=== PATIENT | male | born 1985 | race Caucasian/White ===

== ENCOUNTER 2017-06-04 20:44 | Emergency (ER) | payer SELFPAY ==
[~2017-06-04] VITALS: Ht 172.7 cm; Wt 95.5 kg
[2017-06-04 20:47] VITALS: Ht 172.7 cm; Wt 95.5 kg
[2017-06-04] MEDS ORDERED: TETRACAINE 0.5% 4 ML OPH BOTH EYES ONE (21:30)
[2017-06-04] MEDS ORDERED: DIPHTH/TET/ACEL PERTUSS (ADULT) 0.5 ML VIAL IM* ONE (21:30)
[2017-06-04] MEDS ORDERED: FLUORESCEIN STRIP BOTH EYES ONE (21:30)
[2017-06-04] MEDS ORDERED: IBUP-1542 PO (22:59)
[2017-06-04] MEDS ORDERED: OFLO5DRO46 BOTH EYES (22:59)
--- NOTE | 2017-06-04 23:01 | ERD ---
ER Documentation Chief Complaint Date/Time DATE: 06/04/17 TIME: 23:01 Chief Complaint pt works with water heater that exploded and debris went into eyes HPI Patient is a 32-year-old male who presents to the emergency department for concerns of injury. Patient states approximately 1 hour ago he was putting a water heater back together with friend when the water heater "exploded" and dust went into the patient's face and eyes. Patient denies any hot water or flames in his face. Patient states he initially had some blurry vision however it has resolved completely. Patient has normal site at this time. Patient denies any burning pain. Patient states his eyes to feel itchy. Patient does not wear contact lens.Patient denies any fevers, chills, nausea, headache, vomiting, chest pain, shortness of breath or LOC. ROS All systems reviewed and are negative except as per history of present illness. Medications Home Meds Active Scripts Ibuprofen* (Motrin*) 600 Mg Tab, 600 MG PO Q6, #20 TAB Prov:KIMBERLY RIGGS PA-C 06/04/17 Ofloxacin* (Ocuflox*) 0.3%-5 Ml Ophth Drops, 1 DROP BOTH EYES QID for 7 Days, BOTTLE Prov:KIMBERLY RIGGS PA-C 06/04/17 Allergies Allergies: Coded Allergies: No Known Allergy (Unverified , 06/04/17) PMhx/Soc Medical and Surgical Hx: pt denies Medical Hx, pt denies Surgical Hx Hx Alcohol Use: No Hx Substance Use: No Hx Tobacco Use: No Smoking Status: Never smoker FmHx Family History: No diabetes Physical Exam Vitals Vital Signs Date Time Temp Pulse Resp B/P Pulse Ox O2 Delivery O2 Flow Rate FiO2 06/04/17 20:47 98.3 68 18 148/85 99 Physical Exam GENERAL: Well-developed, well-nourished male. Appears in no acute distress. Speaking in full sentences. HEAD: Normocephalic, atraumatic. No abrasions or lacerations noted to the patient's forehead or face. No mendoza noted to face. EYE: Visual acuity w/ Snellen eye chart: OS 20/20, OD 20/20, OU 20/20 Normal eye alignment. No orbital swelling or erythema. No mendoza noted bilaterally. No proptosis. Pupils equal, round, and reactive to light. EOMs intact. Slight conjunctival erythema noted bilaterally. No eye discharge. Anterior chamber clear. No hyphema or hypopion. Espinoza lamp exam: No foreign bodies, corneal abrasions or ulcerations of bilateral eyes visualized with fluorescein dye. ENT: Moist mucous membranes. No uvula deviation. No kissing tonsils. NECK: Supple. No meningismus. Normal range of motion of the neck. LUNGS: Clear to auscultation bilaterally. No rhonchi, wheezing, rales or coarse breath sounds. HEART: Regular rate and rhythm. No murmurs, rubs or gallops. EXTREMITIES: Equal pulses bilaterally. No peripheral clubbing, cyanosis or edema. No unilateral leg swelling. NEUROLOGIC: Alert and oriented. Moving all four extremities without any difficulty. Normal speech. Steady gait. SKIN: Normal color. Warm and dry. No rashes or lesions. Results 24 hrs Current Medications Medications (Trade) Dose Ordered Sig/Latia Route PRN Reason Start Time Stop Time Status Last Admin Dose Admin Tetracaine HCl (Tetracaine 0.5% Steri-Unit Urmila) 1 drop ONCE ONCE BOTH EYES 06/04/17 21:30 06/04/17 21:31 DC Fluorescein Sodium (Piyrf-L-Hxdzq) 1 strip ONCE ONCE BOTH EYES 06/04/17 21:30 06/04/17 21:31 DC Diphtheria/ Tetanus/Acell Pertussis (Adacel) 0.5 ml ONCE ONCE IM* 06/04/17 21:30 06/04/17 21:31 DC 06/04/17 21:23 Procedures/MDM MEDICAL DECISION MAKING: This is a 32-year-old male who presents to the ED for concerns of eye irritation after a water heater exploded and caused dust particles to get into his bilateral eyes proximally 1 hour ago. Vital signs were reviewed. Patient was afebrile. Visual acuity was assessed. Patient was noted to have 20/20 vision in bilateral eyes. Patient's eyes were rinsed out with a Jhon lens bilaterally. Wood's lamp was used to assess for any abrasions or ulcerations. No corneal abrasions or ulcerations were noted using fluorescein staining. Given these findings, the patient's presentation is most consistent with corneal irritation. I have a much lower clinical concern for bacterial conjunctivitis, viral conjunctivitis, allergic conjunctivitis, corneal abrasion , corneal ulcer, retained eye foreign body, glaucoma, periorbital cellulitis, orbital cellulitis, hordeolum, dacrocystitis, burn injury. PRESCRIPTIONS: Ibuprofen, Ocuflox DISCHARGE: At this time, patient is stable for discharge and outpatient management. Patient was advised to follow-up with an eyeglass inspector in the next 1 to 2 days. Referral information provided. Supportive measures were discussed with patient including warm/cool compresses. Patient advised not to wear contact lenses or eye makeup. I have instructed the patient to follow-up with his/her primary care physician in 1-2 days. I have instructed the patient to promptly return to the ER for any new or worsening symptoms including increased pain, fever, swelling, redness, warmth, nausea, vomiting, . The patient and/or family expressed understanding of and agreement with this plan. All questions were answered. Home care instructions were provided. Departure Diagnosis: Primary Impression: Corneal irritation of both eyes Condition: Stable Referrals: [facility] YOU HAVE RECEIVED A MEDICAL SCREENING EXAM AND THE RESULTS INDICATE THAT YOU DO NOT HAVE A CONDITION THAT REQUIRES URGENT TREATMENT IN THE EMERGENCY DEPARTMENT. FURTHER EVALUATION AND TREATMENT OF YOUR CONDITION CAN WAIT UNTIL YOU ARE SEEN IN YOUR DOCTORS OFFICE WITHIN THE NEXT 1-2 DAYS. IT IS YOUR RESPONSIBILITY TO MAKE AN APPOINTMENT FOR FOLOW-UP CARE. IF YOU HAVE A PRIMARY DOCTOR --you should call your primary doctor and schedule an appointment IF YOU DO NOT HAVE A PRIMARY DOCTOR YOU CAN CALL OUR PHYSICIAN REFERRAL HOTLINE AT IF YOU CAN NOT AFFORD TO SEE A PHYSICIAN YOU CAN CHOSE FROM THE FOLLOWING [facility] [address] [facility]. [facility] [address] [facility] [address] [facility]. [facility] [address] [facility]. [facility] [address] [facility] [facility]. [address] [facility] YOU HAVE RECEIVED A MEDICAL SCREENING EXAM AND THE RESULTS INDICATE THAT YOU DO NOT HAVE A CONDITION THAT REQUIRES URGENT TREATMENT IN THE EMERGENCY DEPARTMENT. FURTHER EVALUATION AND TREATMENT OF YOUR CONDITION CAN WAIT UNTIL YOU ARE SEEN IN YOUR DOCTORS OFFICE WITHIN THE NEXT 1-2 DAYS. IT IS YOUR RESPONSIBILITY TO MAKE AN APPOINTMENT FOR FOLOW-UP CARE. IF YOU HAVE A PRIMARY DOCTOR --you should call your primary doctor and schedule and appointment IF YOU DO NOT HAVE A PRIMARY DOCTOR YOU CAN CALL OUR PHYSICIAN REFERRAL HOTLINE AT . IF YOU CAN NOT AFFORD TO SEE A PHYSICIAN YOU CAN CHOSE FROM THE FOLLOWING [facility]: [facility] [address] [place] [address] [facility] [address] [place] [address] [facility] [address] [place] [address] [facility] Hours: Mon - Fri 9:00 AM - 5:00 PM Additional Instructions: Call your primary care doctor/EYE DOCTOR TOMORROW for an appointment during the next 1-2 days.See the doctor sooner or return here if your condition worsens before your appointment time. Schedule an appointment an eyeglass inspector as soon as possible. Continue eyedrops until seen by eyeglass inspector. Avoid rubbing eyes. KIMBERLY RIGGS PA-C Jun 04, 2017 23:01
== END 2017-06-04 23:25 | disposition home or self-care (01) ==
LOC: FTE 20:44
DX: H57.8 Other specified disorders of eye and adnexa (principal); Z23 Encounter for immunization
CPT/HCPCS: 90471; 90715